=== PATIENT | female | born 1965 | race Caucasian/White ===

== ENCOUNTER → 2018-07-01 | Outpatient (CLI) | payer MEDICARE | LOC: MAMMO 12:01 | PROVIDERS: ATTEND Family Medicine | DX: Z12.31 Encounter for screening mammogram for malignant neoplasm of breast (principal) | CPT/HCPCS: 77067 ==

== ENCOUNTER → 2018-07-28 | Outpatient (CLI) | payer MEDICARE, OTHER ==
--- NOTE | 2018-07-28 16:21 | Diagnostic Imaging Report ---
#[id number] - [id number] #BILATERAL DIGITAL DIAGNOSTIC MAMMOGRAM WITH SPOT COMPRESSION: 07/28/2018 Comparison is made to exam dated: 07/01/2018 mammogram - [facility]. Current study contains 8 films. There are scattered fibroglandular elements in both breasts. No significant masses, calcifications, or other findings are seen in either breast. Multiple areas of calcification are present in both breasts. In addition an oval nodule is present in the right breast. IMPRESSION: PROBABLY BENIGN A follow-up mammogram in 6 months is recommended to demonstrate stability concerning the calcifications and right nodule. The patient has been or will be notified of the results. Tom Bello Jr., D.O. cw/:07/28/2018 15:11:29 [place] Assembler: Stefany ACUNA(R)(M), [facility] letter sent: Followup Recommended Mammogram BI-RADS: 3 Probably benign
== END ==
LOC: MAMMO 13:31
PROVIDERS: ATTEND Family Medicine
DX: R92.8 Other abnormal and inconclusive findings on diagnostic imaging of breast (principal)
CPT/HCPCS: 77066